=== PATIENT | male | born 1970 | race Caucasian/White ===

== ENCOUNTER → 2017-10-17 | Outpatient (CLI) | payer OTHER | LOC: RAD 07:57 | DX: R59.0 Localized enlarged lymph nodes (principal) ==

== ENCOUNTER → 2024-02-29 | Outpatient (CLI) | payer BC ==
[2024-04-23 16:06] LABS: HEPATITIS C VIRUS ANTIBODY NON REACTIVE; TESTOSTERONE 1265
[2024-04-23 23:09] LABS: HEMOGLOBIN 15.6 g/dL (13.5-18.0); MEAN PLATELET VOLUME 10.7 fl (7.4-10.4); RED BLOOD COUNT 5.3 M/mm3 (4.20-5.60); RED CELL DISTRIBUTION WIDTH 13.4 % (11.5-14.5)
[2024-04-23 23:11] LABS: ALBUMIN 4.1 g/dL (3.5-5.0); CALCIUM 9.4 mg/dL (8.3-10.5); TOTAL BILIRUBIN 0.8 mg/dL (0.2-1.2); TOTAL PROTEIN 6.6 g/dL (6.4-8.3)
== END ==
LOC: LAB 07:04
PROVIDERS: Family Medicine
DX: Z12.5 Encounter for screening for malignant neoplasm of prostate (principal); Z11.4 Encounter for screening for human immunodeficiency virus [HIV]; Z13.220 Encounter for screening for lipoid disorders; Z13.1 Encounter for screening for diabetes mellitus; Z11.59 Encounter for screening for other viral diseases; E29.1 Testicular hypofunction; Z91.89 Other specified personal risk factors, not elsewhere classified

== ENCOUNTER → 2024-06-14 | Outpatient (CLI) | payer BC ==
[2024-06-15 17:16] LABS: T3 FREE 2.9 pg/mL (1.7-3.7)
[2024-06-19 05:38] LABS: SEX HORMONE BINDING GLOBULIN 26.6 nmol/L (())
== END ==
LOC: LAB 18:25
DX: N42.9 Disorder of prostate, unspecified (principal); E29.1 Testicular hypofunction; R53.83 Other fatigue